=== PATIENT | female | born 1960 | race Caucasian/White ===

== ENCOUNTER 2024-01-17 16:13 | Outpatient (AMB) | payer MEDICARE, SELFPAY ==
--- NOTE | 2024-01-17 16:16 | AM.OFFWIN_ITS ---
Intake Vital Signs 01/17/24 16:22 Height 5 ft 8 in BP 126/66 Blood Pressure Location Rt brachial Position Sitting Pulse 76 Pulse Source Pulse Oximeter Temp 98.1 F Temp Source Oral Pulse Oximetry (%) 98 Intake Visit Reasons: ?UTI Intake Note: pt is here for possible uti Patient Tobacco Use Status: Never used Tobacco Allergies codeine Allergy (Mild, Verified 01/17/24 16:23) Unknown Do you need a note to return to daycare/school/sports/work: No HPI HPI Comments History of Present Illness Details Patient is a 63-year-old female complaining of increased urgency and frequency of urination. She states this is the same symptoms she has when she has a urinary tract infection. She will urinate and at the very end has a little bit of a bladder spasm. She denies any pain or burning with urination, she denies any blood in her urine or history of kidney stones. She denies any suprapubic pain or low back pain. She also states she always gets a yeast infection after she takes antibiotics and is asking for medication for yeast infection. [facility] Social History Patient Tobacco Use Status: Never used Tobacco Review of Systems Const All systems reviewed & are unremarkable except as noted in HPI and below Physical Exam Vital Signs: Last Vital Signs Temp 98.1 F 01/17/24 16:22 Pulse 76 01/17/24 16:22 BP 126/66 01/17/24 16:22 Pulse Ox 98 01/17/24 16:22 Const General: cooperative, healthy appearing, comfortable, no acute distress and well developed Orientation/consciousness: patient oriented x3 Limitations: no limitations HEENT Head: Yes normal to inspection Eyes General: appearance normal, both eyes and all related structures Neck Neck: Yes normal visual inspection and Yes full ROM Resp Effort & Inspection: normal respiratory effort and able to speak in complete sentences General: Yes bladder normal to palpation Bimanual exam- vagina & uterus: bladder normal to palpation Skin General skin exam: no rashes or lesions noted Neuro General: patient oriented x3 Extrem General: Yes normal to inspection Results AMB Urinalysis, Automated UA Leukoctes 70 Vitaliy/uL Last Edit by Gregory Suresh CMA on 01/17/24 16:35 UA Nitrite Positive Last Edit by Gregory Suresh CMA on 01/17/24 16:35 UA Urobilinogen 1 mg/dL Last Edit by Gregory Suresh CMA on 01/17/24 16:3 5 UA Protein 0 mg/dL Last Edit by Gregory Suresh CMA on 01/17/24 16:35 UA pH 6.0 Last Edit by Gregory Suresh CMA on 01/17/24 16:35 UA Blood 0 Alan/uL Last Edit by Gregory Suresh CMA on 01/17/24 16:35 UA Specific [place] 1.005 Last Edit by Gregory Suresh CMA on 01/17/24 16:35 UA Ketone Negative Last Edit by Gregory Suresh CMA on 01/17/24 16:35 UA Bilirubin 1 mg/dL Last Edit by Gregory Suresh CMA on 01/17/24 16:35 UA Glucose 0 mg/dL Last Edit by Gregory Suresh CMA on 01/17/24 16:35 Results Reviewed Results Reviewed: UA positive for infection Assessment & Plan Assessment & Plan (1) UTI (urinary tract infection): Code(s): N39.0 - Urinary tract infection, site not specified Qualifiers: Urinary tract infection type: acute cystitis Hematuria presence: without hematuria Qualified Code(s): N30.00 - Acute cystitis without hematuria Plan: UA+, sent prescription for cefuroxime and Diflucan (as requested) to pharmacy Plan See above Orders: Orders AMB Urinalysis Automated Today Z13.9 - Encounter for screening, unspecified Medications: New cefuroxime axetil 500 mg PO Q12H 10 tabs 0RF fluconazole may repeat second dose 72 hrs after first dose if symptoms persist 150 mg PO Q3D 2 tabs 0RF Coding Level of Care Code New Pt Level 3 (56097) Diagnoses Acute cystitis without hematuria N30.00 Urinary tract infection type: acute cystitis Hematuria presence: without hematuria
[2024-01-17 16:22] VITALS: BP 126/66; PULSE 76; TEMP 36.7; O2SAT 98
== END 2024-01-17 18:13 | disposition home or self-care (01) ==
DX: N30.00 Acute cystitis without hematuria (principal); Z13.9 Encounter for screening, unspecified
CPT/HCPCS: 81003; 99203